=== PATIENT | male | born 1980 | race Caucasian/White ===

== ENCOUNTER 2023-08-14 11:02 | Emergency (ER) | payer BC, SELFPAY ==
[2023-08-14 11:12] VITALS: BP 106/66
--- NOTE | 2023-08-14 12:11 | ED.GENMED ---
History of Present Illness
General
Chief Complaint: Abdominal Pain
Source: patient
Exam Limitations: none
Time Seen by Provider: 08/14/23 12:01
Nursing documentation reviewed up to this point in time: agreed with
Travel History
Have you had any contact with someone who has COVID-19?: No
Do you have any symptoms of coronavirus? Fever > 100 degrees, chills, cough, shortness of breath, sore throat, loss of taste or smell, muscle aches, or headache?: No
History of Present Illness
History of Present Illness:
42 yo male 5 weeks ago diagnosed by US with umbilical hernia. He has been cycling, exercising and doing 'stomach vaccuum quite a lot' as he read it can help with hernias. His periumbilical pain is intermittent, worse at times, yesterday was at its
worse for about 3 hours. Is scheduled to see Surgeon Dr. Velez in 2 weeks, couldn't get in to his PCP for a month for US order so is here requesting US before he sees Dr. Velez. 'I would really like to avoid the radiation' of a CT scan.
Pain minimal at this time.
Past History
Past History
ED Past Medical History: Other (umbilical hernia)
ED Past Surgical History: None
Social History
Tobacco: Non-smoker
Alcohol: None
Personal:
Living: with family
Employment: Employed
Review of Systems
Review of Systems
Allergies reviewed?: Yes
All Other Systems: ROS reviewed and negative except as documented in HPI and ROS
Constitutional: Denies fever
Respiratory: Denies trouble breathing
Cardiac: Denies chest pain
ABD/GI: Reports abdominal pain (periumbilical); Denies nausea, vomiting, diarrhea, constipated, bloody stools, black stools or anorexia
: Denies dysuria or difficulty voiding
Musculoskeletal: Reports no symptoms
Skin: Reports no symptoms
Neurological: Reports no symptoms
Phy Exam
Physical Exam
Physical Exam:
GENERAL: No acute distress. A&Ox3.
CONSTITUTIONAL: Afebrile.
RESPIRATORY: Regular respirations, nonlabored, lungs clear.
CARDIOVASCULAR: Regular rate and rhythm, no murmurs, no rubs.
GI: Soft, flat, muscular, no palpable masses, tender to palpation periumbilical area, normal BS
MUSCULOSKELETAL: Moves with ease. Well perfused.
SKIN: Warm, dry, pink
PSYCH: Normal mood and affect. Well kept, interactive and appropriate
NEUROLOGIC: Awake, alert and oriented. No focal neurological deficits
Course
Orders/Labs/Results
Orders:
Orders
08/14/23 12:18
US Abdomen Limited Urgent
Comment:
Reason For Exam: periumbilical pain, hx umbilical hernia by US
Vital Signs
Initial and Last Documented VS:
Initial Vital Signs
Temp Pulse Resp BP Pulse Ox
98.5 F 102 18 106/66 96
08/14/23 11:12 08/14/23 11:12 08/14/23 11:12 08/14/23 11:12 08/14/23 11:12
Last Documented Vital Signs
Temp Pulse Resp BP Pulse Ox
98.5 F 102 18 106/66 96
08/14/23 11:12 08/14/23 11:12 08/14/23 11:12 08/14/23 11:12 08/14/23 11:12
MDM/Problems Addressed
Differential Diagnosis Includes:
umbilical hernia, muscle strain
MDM/Problems Addressed:
42 yo male 5 weeks ago diagnosed by US with umbilical hernia. He has been cycling, exercising and doing 'stomach vaccuum quite a lot' as he read it can help with hernias. His periumbilical pain is intermittent, worse at times, yesterday was at its
worse for about 3 hours. Is scheduled to see Surgeon Dr. Velez in 2 weeks, couldn't get in to his PCP for a month for US order so is here requesting US before he sees Dr. Velez. 'I would really like to avoid the radiation' of a CT scan.
Pt in very good physial shape, tall, lanky, muscular.
Pain minimal at this time. It feels like burning pain sometimes, is concerned for a muscle tear also.
NAD
12:22 PM
Spoke with radiologist, explained that patient prefers to not be radiated with a CAT scan, explained that we are looking for an umbilical hernia that is neither palpable nor visible
Offered to do Ct scan of abdomen but pt kindly declined and states he is happy with the US results and no hernia
*Critical Care Note
Total Time (30-74mins, 75-104mins- exclusive of procedures): Not Applicable
ED Attending Note
-
Portions of this chart may have been created with voice recognition software.� Occasional wrong word or��sound alike� substitutions may have occurred due to the inherent limitations of voice recognition software.
Discharge Plan
Departure
Patient Disposition: Home (Routine Discharge)
Date of Disposition: 08/14/23
Time of Disposition: 13:22
Patient with high blood pressure during this ER visit?: No
Condition: Good
Discharge Problem:
Acute periumbilical pain
Instructions: Abdominal Muscle Strain ED, Abdominal Pain
Referrals:
Perry Sewell DO [Family Provider] -
Sammy Velez MD [Active] - Keep scheduled appt
Activity Restrictions/Additional Instructions:
As we discussed, your ultrasound is negative for an umbilical hernia
The more thorough evaluation for abdominal pain is a CT scan. You have opted to not do this today, you may need it at some point.
Return here if pain gets worse, vomiting or feeling sicker in any way.
Avoid any abdominal exercises, straining.
Interventions
Interventions:
*Risk Screen - Suicide Last Done: 08/14/23 14:01
*General Assessment Last Done: 08/14/23 14:01
*Neglect/Abuse Screening Last Done: 08/14/23 14:01
*Nursing Disposition Last Done: 08/14/23 14:01
EW-Cfoefr-Icznfgpina Assessment Last Done: 08/14/23 13:53
Discharge Date and Time
Discharge Date/Time: 08/14/23 14:02
Print Language: TURKISH
== END 2023-08-14 14:02 | disposition home or self-care (01) ==
LOC: EMR 11:02
PROVIDERS: EMERGENCY PHYSICIAN Emergency Medicine; FAMILY PHYSICIAN Family Medicine
DX: R10.33 Periumbilical pain (principal)
CPT/HCPCS: 99284; 76705